=== PATIENT | male | born 1950 | race Native Hawaiian/Other Pacific Islander ===

== ENCOUNTER 2017-05-12 09:16 | Outpatient (CLI) | payer BC, OTHER ==
[2017-05-12 10:08] LABS: *BILIRUBIN,URIN NEGATIVE (NEGATIVE); *BLOOD, URINE 1+ (NEGATIVE); *CLARITY,URINE CLEAR (CLEAR); *COLOR,URINE YELLOW (YELLOW); *KETONES,URINE NEGATIVE (NEGATIVE); *PROTEIN,URINE NEGATIVE (NEGATIVE); *UROBILINOGEN,URINE 0.2 E.U./dl (NORMAL); LEUKOCYTE ESTERASE ,URINE NEGATIVE (NEGATIVE); NITRITE, URINE NEGATIVE (NEGATIVE); UGLUCOSE NEGATIVE (NEGATIVE)
[2017-05-12 10:19] LABS: BACTERIA,URINE FEW /HPF (NONE SEEN); SQUAMOUS EPITHELIAL CELL,UR FEW /HPF (NONE SEEN); WBC,URINE 0-3 /HPF (0-3)
[2017-05-12 10:30] LABS: BILIRUBIN,TOTAL 0.6 mg/dL (0.2-1.0); CREATININE 1.1 mg/dL (0.6-1.3); POTASSIUM 3.9 mmol/L (3.5-5.1); TOTAL PROTEIN, SERUM 7.5 g/dL (6.4-8.2)
[2017-05-12 10:34] LABS: BASOPHILS # (AUTO) 0.1 K/uL (0.0-8.0); BASOPHILS % (AUTO) 0.8 % (0.0-2.0); EOSINOPHILS # (AUTO) 0.1 K/uL (0.0-0.7); EOSINOPHILS % (AUTO) 2.1 % (0.0-7.0); LYMPHOCYTES # (AUTO) 2.3 K/UL (0.8-4.8); LYMPHOCYTES % (AUTO) 33.5 % (20.5-51.5); MEAN CORPUSCULAR HEMOGLOBIN 30.1 UUG (27.0-31.0); MEAN CORPUSCULAR HGB CONC 33 g/dL (32.0-37.0); MEAN CORPUSCULAR VOLUME 90.6 FL (82.0-92.0); MONOCYTES # (AUTO) 0.4 K/UL (0.1-1.30); NEUTROPHILS # (AUTO) 3.9 K/UL (1.8-8.9); NEUTROPHILS % (AUTO) 57.6 % (38.5-71.5); PLATELET COUNT (AUTO) 208 K/UL (150-450); RED BLOOD CELL COUNT(AUTO) 4.97 MIL/UL (4.7-6.1); WHITE BLOOD COUNT (AUTO) 6.8 K/UL (4.0-11.2)
[2017-05-12 10:55] LABS: THYROID STIMULATING HORMONE 1.773 mIU/mL (0.358-3.740)
== END 2017-05-12 23:59 | disposition home or self-care (01) ==
LOC: LAB 09:16
PROVIDERS: ATTEND Internal Medicine
DX: I71.4 Abdominal aortic aneurysm, without rupture (principal); K76.89 Other specified diseases of liver; N28.1 Cyst of kidney, acquired; M50.322 Other cervical disc degeneration at C5-C6 level; M48.02 Spinal stenosis, cervical region; R73.9 Hyperglycemia, unspecified; Z98.890 Other specified postprocedural states
CPT/HCPCS: 36415; 72050; 84153; 84443; 85025; 87086; J7050; Q9967

== ENCOUNTER 2017-05-26 08:32 | Outpatient (CLI) | payer BC, OTHER ==
[2017-05-26 10:02] LABS: BASOPHILS # (AUTO) 0.1 K/uL (0.0-8.0); BASOPHILS % (AUTO) 0.7 % (0.0-2.0); EOSINOPHILS # (AUTO) 0.1 K/uL (0.0-0.7); HEMOGLOBIN 14.6 G/DL (14.0-18.0); LYMPHOCYTES % (AUTO) 23.3 % (20.5-51.5); MEAN CORPUSCULAR HEMOGLOBIN 29.7 UUG (27.0-31.0); MEAN CORPUSCULAR HGB CONC 33 g/dL (32.0-37.0); MEAN CORPUSCULAR VOLUME 89.6 FL (82.0-92.0); MONOCYTES # (AUTO) 0.4 K/UL (0.1-1.30); MONOCYTES % (AUTO) 4.9 % (0.0-11.0); NEUTROPHILS % (AUTO) 70.1 % (38.5-71.5); PLATELET COUNT (AUTO) 210 K/UL (150-450); RED BLOOD CELL COUNT(AUTO) 4.92 MIL/UL (4.7-6.1); WHITE BLOOD COUNT (AUTO) 8.6 K/UL (4.0-11.2)
[2017-05-26 10:04] LABS: THYROID STIMULATING HORMONE 2.76 mIU/mL (0.358-3.740)
[2017-05-26 11:31] LABS: BILIRUBIN,TOTAL 0.6 mg/dL (0.2-1.0); CREATININE 1.1 mg/dL (0.6-1.3); POTASSIUM 3.8 mmol/L (3.5-5.1); TOTAL PROTEIN, SERUM 7.5 g/dL (6.4-8.2)
== END 2017-05-26 23:59 | disposition home or self-care (01) ==
LOC: LAB 08:32
PROVIDERS: ATTEND Family Medicine
DX: I08.0 Rheumatic disorders of both mitral and aortic valves (principal); I77.811 Abdominal aortic ectasia; I71.4 Abdominal aortic aneurysm, without rupture; I10 Essential (primary) hypertension
CPT/HCPCS: 36415; 84443; 85025; 93307

== ENCOUNTER 2017-06-06 11:25 | Outpatient (CLI) | payer BC, OTHER | END 2017-06-06 23:59 | disposition home or self-care (01) | LOC: CT 11:25 | PROVIDERS: ATTEND Family Medicine | DX: R91.1 Solitary pulmonary nodule (principal); I71.2 Thoracic aortic aneurysm, without rupture; I71.4 Abdominal aortic aneurysm, without rupture; I25.10 Atherosclerotic heart disease of native coronary artery without angina pectoris; I70.0 Atherosclerosis of aorta; K76.89 Other specified diseases of liver; F17.210 Nicotine dependence, cigarettes, uncomplicated; Q85.8 Other phakomatoses, not elsewhere classified | CPT/HCPCS: 71250 ==

== ENCOUNTER 2017-09-26 12:06 | Outpatient (CLI) | payer BC, OTHER ==
[2017-09-26 12:39] LABS: BASOPHILS # (AUTO) 0.1 K/uL (0.0-8.0); BASOPHILS % (AUTO) 1.1 % (0.0-2.0); EOSINOPHILS # (AUTO) 0.1 K/uL (0.0-0.7); EOSINOPHILS % (AUTO) 1.7 % (0.0-7.0); HEMATOCRIT 36.9 % (36.7-47.1); LYMPHOCYTES % (AUTO) 29.4 % (20.5-51.5); MEAN CORPUSCULAR HGB CONC 33 g/dL (32.5-36.3); MONOCYTES # (AUTO) 0.4 K/uL (2.0-10.0); MONOCYTES % (AUTO) 6.5 % (0.0-11.0); NEUTROPHILS # (AUTO) 4.1 K/uL (1.8-8.9); NEUTROPHILS % (AUTO) 61.3 % (38.5-71.5); PLATELET COUNT (AUTO) 221 K/uL (152-348); RED BLOOD CELL COUNT(AUTO) 4.29 MIL/uL (4.06-5.63); WHITE BLOOD COUNT (AUTO) 6.7 K/uL (3.6-10.2)
[2017-09-26 13:00] LABS: BILIRUBIN,TOTAL 0.3 mg/dL (0.2-1.0); CREATININE 1.1 mg/dL (0.6-1.3); POTASSIUM 3.5 mmol/L (3.5-5.1); TOTAL PROTEIN, SERUM 7.5 g/dL (6.4-8.2)
[2017-09-26 13:11] LABS: THYROID STIMULATING HORMONE 2.357 mIU/mL (0.358-3.740)
== END 2017-09-26 23:59 | disposition home or self-care (01) ==
LOC: LAB 12:06
PROVIDERS: ATTEND Family Medicine
DX: R53.83 Other fatigue (principal)
CPT/HCPCS: 36415; 84443; 85025

== ENCOUNTER 2017-10-20 09:24 | Outpatient (CLI) | payer BC, OTHER | END 2017-10-20 23:59 | disposition home or self-care (01) | LOC: LAB 09:24 | PROVIDERS: ATTEND Family Medicine | DX: E78.2 Mixed hyperlipidemia (principal); E55.9 Vitamin D deficiency, unspecified | CPT/HCPCS: 36415; 82306 ==

== ENCOUNTER 2023-02-23 08:50 | Inpatient (IN) | payer BC, OTHER ==
[~2023-02-23] VITALS: Ht 167.6 cm; Wt 51.3 kg
[2023-02-23] MEDS ORDERED: MORPHINE SULFATE 2 MG/1 ML DISP.SYRIN IV ONE (09:00)
[2023-02-23] MEDS ORDERED: ATOR40TA PO (09:03)
[2023-02-23] MEDS ORDERED: ASPI81TA31 PO (09:03)
[2023-02-23] MEDS ORDERED: METOPROLOL (09:03)
[2023-02-23] MEDS ORDERED: FOLIC ACID PO (09:04)
[2023-02-23] MEDS ORDERED: OMEP20TA5 PO (09:04)
--- NOTE | 2023-02-23 09:10 | NUR ---
Patient and were unable to recall all the exact names and dosages of home medications at this time. Family was instructed to bring the lists or bottles of home medicines to the hospital.
[2023-02-23] MEDS ORDERED: IV NORMAL SALINE 1000 ML BAG IV ONE (09:15)
[2023-02-23] MEDS ORDERED: MORPHINE SULFATE 4 MG/1 ML DISP.SYRIN ONE ×2 (09:16→10:55)
[2023-02-23] MEDS ORDERED: ONDANSETRON 4 MG/2 ML VIAL ONE (09:21)
--- NOTE | 2023-02-23 09:25 | NUR ---
BIB family from home with c/o severe abd pain. Assisted into gown, placed on monitor and informed of plan of care. ER provider was at bedside for exam, bedside EKG done for MD review, #20g established in left ac, blood collected and sent to lab. Assisted into position of comfort, side rails up, IVF infusing as per order and has been medicated as per order. Family remains at bedside, will continue to monitor.
[2023-02-23] MEDS ORDERED: ONDANSETRON 4 MG/2 ML VIAL IV ONE (09:30)
[2023-02-23 09:36] LABS: MEAN CORPUSCULAR HEMOGLOBIN 29.2 uug (23.8-33.4); MEAN CORPUSCULAR VOLUME 88.5 fL (73.0-96.2); PLATELET COUNT (AUTO) 255 K/uL (152-348)
[2023-02-23 09:45] LABS: CARBON DIOXIDE 24 mmol/L (21-32); CHLORIDE 105 mmol/L (98-107); CREATININE 1.3 mg/dL (0.6-1.3); POTASSIUM 3.5 mmol/L (3.5-5.1); UREA NITROGEN, BLOOD 19 mg/dL (7-18)
--- NOTE | 2023-02-23 09:47 | NUR ---
Requested and given a urinal.
--- NOTE | 2023-02-23 09:50 | NUR ---
Family member states that pain is a little better.
[2023-02-23 09:51] LABS: ALANINE AMINOTRANSFERASE 20 U/L (16-63); ALKALINE PHOSPHATASE 86 U/L (50-136); ASPARTATE AMINOTRANSFERASE 14 U/L (15-37); BILIRUBIN,DIRECT 0.2 mg/dL (0.0-0.2); BILIRUBIN,TOTAL 0.5 mg/dL (0.2-1.0); LIPASE 215 U/L (73-393); TOTAL PROTEIN, SERUM 7.6 g/dL (6.4-8.2)
[2023-02-23] MEDS ORDERED: IOHEXOL 350 100 ML INFUS..BTL ONE (09:58)
[2023-02-23] MEDS ORDERED: SWABABLE VALVE TRANSFER SET EA MC ONE (09:58)
[2023-02-23] MEDS ORDERED: IV NORMAL SALINE 250 ML IV ONE (09:59)
--- NOTE | 2023-02-23 10:09 | NUR ---
Off unit via gurney to CT.
[2023-02-23] MEDS ORDERED: METO-356 PO (10:40)
--- NOTE | 2023-02-23 10:46 | NUR ---
Patient ambulated to bathroom with family.
--- NOTE | 2023-02-23 10:57 | NUR ---
Medicated at this time for pain 10/10 to abd area.
[2023-02-23] MEDS ORDERED: MORPHINE SULFATE 4 MG/1 ML DISP.SYRIN IV ONE (11:00)
[2023-02-23] MEDS ORDERED: HYDROMORPHONE 1 MG/1 ML DISP.SYRIN IV ONE (12:45)
--- NOTE | 2023-02-23 12:57 | NUR ---
PATIENT AND FAMILY AWARE THAT PATIENT WILL BE ADMITTED TO THE HOSPITAL, AWAITING ROOM ASSIGNMENT.
--- NOTE | 2023-02-23 12:58 | NUR ---
er PROVIDER AWARE OF ELEVATED B/P.
[2023-02-23] MEDS ORDERED: hydrALAZINE HCL 20 MG/1 ML VIAL ONE (13:00)
[2023-02-23] MEDS ORDERED: hydrALAZINE HCL 20 MG/1 ML VIAL IV ONE (13:00)
[2023-02-23] MEDS ORDERED: HYDROMORPHONE 1 MG/1 ML DISP.SYRIN ONE (13:01)
--- NOTE | 2023-02-23 13:08 | NUR ---
fAMILY INFORMED OF ROOM #330 .
--- NOTE | 2023-02-23 13:14 | NUR ---
Medicated for B/P and pain at this time. Urine collected and sent to lab.
--- NOTE | 2023-02-23 13:23 | NUR ---
18fr abel inserted as per order.
[2023-02-23 13:33] LABS: *BILIRUBIN,URIN NEGATIVE (NEGATIVE); *BLOOD, URINE 2+ (NEGATIVE); *CLARITY,URINE CLEAR (CLEAR); *COLOR,URINE YELLOW (YELLOW); *KETONES,URINE TRACE (NEGATIVE); *UROBILINOGEN,URINE 0.2 E.U./dl (NORMAL); LEUKOCYTE ESTERASE ,URINE NEGATIVE (NEGATIVE); NITRITE, URINE NEGATIVE (NEGATIVE); PH,URINE 7.5 (5.0-8.0); UGLUCOSE TRACE (NEGATIVE)
[2023-02-23 13:53] LABS: WBC,URINE 0-3 /HPF (0-3)
[2023-02-23] MEDS ORDERED: REMEDY ESSENTIAL ZINC PASTE 113 GM TP PRN (14:15)
[2023-02-23] MEDS ORDERED: ACETAMINOPHEN 325 MG TABLET PO PRN (14:15)
[2023-02-23] MEDS ORDERED: MAGNESIUM HYDROXIDE 30 ML LIQUID UDC PO PRN (14:15)
[2023-02-23] MEDS ORDERED: ASPIRIN 81 MG TAB.CHEW PO SCH (14:15)
[2023-02-23] MEDS ORDERED: ONDANSETRON 4 MG/2 ML VIAL IV PRN (14:15)
--- NOTE | 2023-02-23 14:18 | NUR ---
Report given to accepting nurse Gener, patient remains stable for transport.
[2023-02-23 16:00] VITALS: BP 138/76; TEMP 97.8; O2SAT 99
[2023-02-23] MEDS ORDERED: TAMSULOSIN HCL 0.4 MG CAP.SR.24H PO SCH (16:00)
--- NOTE | 2023-02-23 16:00 | NUR ---
[facility] 3[facility]. AAOx4. Afebrile. No SOB or any respiratory distress. Pt in pain 5/10 in abdominal area but refused any pain medication. Pt. ambulatory. He just want to rest and sleep. Vital signs WNL. Needs attended. Admission protocol provided. Call light put within reach.
[2023-02-23] MEDS: FOLIC ACID 1 MG TABLET PO SCH (17:45)
[2023-02-23] MEDS: PANTOPRAZOLE SODIUM 40 MG TABLET.DR PO SCH (17:45)
[2023-02-23] MEDS: ATORVASTATIN 40 MG TABLET PO SCH (17:46)
[2023-02-23] MEDS: METOPROLOL SUCCINATE XL 25 MG TAB.SR.24H PO SCH (17:46)
--- NOTE | 2023-02-23 18:36 | NUR ---
Pt's routine PO meds given and pt. tolerated it. Pt. in cardiac diet (low fat/cholesterol) and he prefers to have his dinner from home to be brought by the family. Pt no pain but still with abdominal discomfort. Dias cath draining via gravity with output of 950 cc. No vomiting episode at this time. Family on bedside.
[2023-02-23 20:00] VITALS: BP 116/67; TEMP 98.4; O2SAT 97
--- NOTE | 2023-02-23 20:00 | NUR ---
RECEIVED REPORT FROM AM NURSE GENER PT IS ALERT AND ORIENTED X4 IS AT BEDSIDE NO SIGNS OF DISTRESS NOTED. PT TAKEN DOWN FOR XRAY AND NAVAS EMPTIED HAD 1000 OUT. NO SIGNS OF DISTRESS NOTED. PT RETURNED FROM XRAY AT 0 NO SIGNS OF EMESIS NOTED OR COMPLIANTS OF NAUSEA. WILL CONTINUE TO MONITOR FOR THESE SYMPTOMS. AND FOR FALLS ALONG WITH SAFETY.
[2023-02-24 06:13] VITALS: BP 109/68; TEMP 98.2; O2SAT 99
[2023-02-24] MEDS: PANTOPRAZOLE SODIUM 40 MG TABLET.DR PO SCH (06:22)
[2023-02-24 06:35] LABS: HEMATOCRIT 39.2 % (36.7-47.1); MEAN CORPUSCULAR HEMOGLOBIN 29.2 uug (23.8-33.4); PLATELET COUNT (AUTO) 236 K/uL (152-348)
--- NOTE | 2023-02-24 06:54 | NUR ---
PT SLEPT DURING THE NIGHT NO SIGNS OF EMESIS NOTED. WILL ENDORSE TO AM NURSE.
[2023-02-24 07:04] LABS: CREATININE 1.2 mg/dL (0.6-1.3); MAGNESIUM 2.1 mg/dL (1.8-2.4); POTASSIUM 3.5 mmol/L (3.5-5.1)
[2023-02-24] MEDS: METOPROLOL SUCCINATE XL 25 MG TAB.SR.24H PO SCH (08:41)
[2023-02-24] MEDS: ATORVASTATIN 40 MG TABLET PO SCH (08:41)
[2023-02-24] MEDS: FOLIC ACID 1 MG TABLET PO SCH (08:41)
[2023-02-24] MEDS ORDERED: IV NS 1000 ML 1,000 ML IV PRN (09:30)
[2023-02-24] MEDS ORDERED: TAMS-3 PO (11:13)
[2023-02-24 12:00] VITALS: BP 100/60; TEMP 98.3; O2SAT 100
--- NOTE | 2023-02-24 12:51 | NUR ---
Discharge instructions given. Pt urinated well 400 after f/c was d/c @ 800am. Instructed to f/u with primary doctor within 1 week. Pt is in no acute distress. PT tolerated am breakfast. No c/o nausea and vomiting. IV taken out. No c/o abd pain.
[2023-02-24] MEDS ORDERED: TAMSULOSIN HCL 0.4 MG CAP.SR.24H PO SCH (21:00)
[2023-02-25] MEDS ORDERED: ONDA4TAB5 PO (13:43)
[2023-02-25] MEDS ORDERED: FAMO-132 PO (13:43)
== END 2023-02-24 13:00 | disposition home or self-care (01) | DRG 726 ==
LOC: ER 08:50 → TELE3 14:51 → MEDSURG3 16:41
PROVIDERS: ADMIT Nurse Practitioner Acute Care; ATTEND Nurse Practitioner Acute Care
DX: N40.1 Benign prostatic hyperplasia with lower urinary tract symptoms (principal); N13.8 Other obstructive and reflux uropathy; R33.8 Other retention of urine; F12.90 Cannabis use, unspecified, uncomplicated; F17.210 Nicotine dependence, cigarettes, uncomplicated; I73.9 Peripheral vascular disease, unspecified; K21.9 Gastro-esophageal reflux disease without esophagitis; Z87.440 Personal history of urinary (tract) infections; R91.1 Solitary pulmonary nodule; I10 Essential (primary) hypertension; Z98.62 Peripheral vascular angioplasty status; Z86.79 Personal history of other diseases of the circulatory system; I71.40 Abdominal aortic aneurysm, without rupture, unspecified
CPT/HCPCS: 36415; 71045; 71250; 83605; 83690; 83735; 84100; 84153; 85025; 85730; 86301; 93005; A4663; C1758; G0378; J0360; J1170; J2270; J2405; J7040; Q9967

== ENCOUNTER 2023-02-25 10:59 | Inpatient (IN) | payer BC, MEDICARE, OTHER ==
[~2023-02-25] VITALS: Ht 167.6 cm; Wt 51.3 kg
[~2023-02-25 10:59] MED LIST: ASPI81TA31 PO; ATOR40TA PO; FOLIC ACID PO; METO-356 PO; OMEP20TA5 PO; TAMS-3 PO
[2023-02-25] MEDS ORDERED: MORPHINE SULFATE 2 MG/1 ML DISP.SYRIN IV ONE (11:30)
[2023-02-25] MEDS ORDERED: ONDANSETRON HCL 4 MG TABLET PO ONE (11:30)
[2023-02-25 11:42] LABS: HEMATOCRIT 46.6 % (36.7-47.1); MEAN CORPUSCULAR HEMOGLOBIN 29.3 uug (23.8-33.4); MEAN CORPUSCULAR VOLUME 87.7 fL (73.0-96.2); PLATELET COUNT (AUTO) 258 K/uL (152-348)
--- NOTE | 2023-02-25 11:42 | NUR ---
BIB , placed into room #4, placed on monitor, informed of plan of care. C/O abd pain with nausea and vomiting. Patient remains alert and oriented x4, no s/s of respiratory distress, abd is soft and non tender to palpation with positive bowel sounds. #20g was established in left ac, blood collected and sent to lab. will continue to monitor.
[2023-02-25 11:47] LABS: CARBON DIOXIDE 24 mmol/L (21-32); CHLORIDE 102 mmol/L (98-107); CREATININE 1.3 mg/dL (0.6-1.3); POTASSIUM 3.3 mmol/L (3.5-5.1); UREA NITROGEN, BLOOD 17 mg/dL (7-18)
[2023-02-25] MEDS ORDERED: ONDANSETRON 4 MG/2 ML VIAL ONE (11:47)
[2023-02-25] MEDS ORDERED: MORPHINE SULFATE 4 MG/1 ML DISP.SYRIN ONE (11:47)
--- NOTE | 2023-02-25 11:53 | NUR ---
Patient ambulated to bathroom and back to bed, radiology at bedside, has been medicated as per order. Per ER provider Okay to medicated with IV zofran.
[2023-02-25 11:56] LABS: ALANINE AMINOTRANSFERASE 19 U/L (16-63); ALKALINE PHOSPHATASE 106 U/L (50-136); ASPARTATE AMINOTRANSFERASE 13 U/L (15-37); BILIRUBIN,DIRECT 0.2 mg/dL (0.0-0.2); BILIRUBIN,TOTAL 0.9 mg/dL (0.2-1.0); TOTAL PROTEIN, SERUM 8.7 g/dL (6.4-8.2)
--- NOTE | 2023-02-25 12:02 | NUR ---
Patient resting at this time, remains easy to arouse, remains at bedside, will continue to monitor.
--- NOTE | 2023-02-25 12:56 | NUR ---
ER provider at bedside talking to patient.
--- NOTE | 2023-02-25 12:57 | NUR ---
IV fluids infusing as per order.
[2023-02-25] MEDS ORDERED: IV NORMAL SALINE 1000 ML BAG IV ONE (13:00)
[2023-02-25] MEDS ORDERED: FAMOTIDINE. 20 MG/2 ML VIAL IV ONE ×2 (13:15→13:16)
[2023-02-25] MEDS ORDERED: MAG HYDROX/AL HYDROX/SIMETH 30 ML LIQUID UDC PO ONE (13:15)
[2023-02-25] MEDS ORDERED: LIDOCAINE VISCUS 2% 15 ML UDC MM ONE (13:15)
[2023-02-25] MEDS ORDERED: MAG HYDROX/AL HYDROX/SIMETH 30 ML LIQUID UDC ONE (13:15)
--- NOTE | 2023-02-25 13:22 | NUR ---
remains at bedside, medicated as per order, IVF continues to infuse.
[2023-02-25] MEDS ORDERED: FAMO-132 PO (13:43)
[2023-02-25] MEDS ORDERED: ONDA4TAB5 PO (13:43)
[2023-02-25 13:47] LABS: *BILIRUBIN,URIN NEGATIVE (NEGATIVE); *BLOOD, URINE 1+ (NEGATIVE); *CLARITY,URINE CLEAR (CLEAR); *COLOR,URINE YELLOW (YELLOW); *KETONES,URINE 1+ (NEGATIVE); *UROBILINOGEN,URINE 0.2 E.U./dl (NORMAL); LEUKOCYTE ESTERASE ,URINE NEGATIVE (NEGATIVE); NITRITE, URINE NEGATIVE (NEGATIVE); UGLUCOSE NEGATIVE (NEGATIVE)
--- NOTE | 2023-02-25 13:53 | NUR ---
Informed ER provider of 2nd trop level of 94 at this time. Provider at bedside talking with patient.
[2023-02-25 13:59] LABS: BACTERIA,URINE FEW /HPF (NONE SEEN); SQUAMOUS EPITHELIAL CELL,UR FEW /HPF (NONE SEEN); URINE AMORPHOUS URATE MODERATE /HPF; WBC,URINE 0-3 /HPF (0-3)
[2023-02-25] MEDS ORDERED: ASPIRIN 81 MG TAB.CHEW PO ONE (14:30)
[2023-02-25] MEDS ORDERED: ASPIRIN 325 MG TABLET PO ONE (15:30)
--- NOTE | 2023-02-25 16:37 | NUR ---
REPORT GIVEN TO ALISE, PATIENT REMAINS STABLE FOR TRANSPORT.
[2023-02-25] MEDS ORDERED: ASPIRIN 325 MG TABLET ONE (16:39)
--- NOTE | 2023-02-25 17:00 | NUR ---
received from ER per stretcher awake alert and oriented, on room aair, denies of chest pain, no abdominal pain. Routine admission care rendered, initial assessment done. Telemetry applied- ST/SR with PVC's, safety measures initiated , at bedside
[2023-02-25 17:16] VITALS: BP 109/68; TEMP 98.7; O2SAT 98
[2023-02-25] MEDS ORDERED: ACETAMINOPHEN 325 MG TABLET PO PRN (18:15)
[2023-02-25] MEDS ORDERED: ONDANSETRON 4 MG/2 ML VIAL IV PRN (18:15)
[2023-02-25] MEDS ORDERED: HYDROCODONE/APAP 5-325MG TABLET PO PRN (18:15)
[2023-02-25 20:00] VITALS: BP 107/62; TEMP 98.2; O2SAT 96
--- NOTE | 2023-02-25 20:40 | NUR ---
Received patient alert oriented, no sob no chest pain, at bedside, no further episode of nausea or vomiting, patient sleep intermittenly. cont to monitor.
[2023-02-25] MEDS ORDERED: TAMSULOSIN HCL 0.4 MG CAP.SR.24H PO SCH (21:00)
[2023-02-25] MEDS ORDERED: ATORVASTATIN 40 MG TABLET PO SCH (21:00)
[2023-02-25] MEDS ORDERED: ENOXAPARIN SODIUM 40 MG/0.4 ML DISP.SYRIN SQ SCH (21:00)
[2023-02-25] MEDS: METOPROLOL SUCCINATE XL 25 MG TAB.SR.24H PO SCH (21:03)
[2023-02-26 01:54] VITALS: BP 118/66; TEMP 98.3; O2SAT 96
[2023-02-26 04:00] VITALS: BP 104/55; TEMP 98.3; O2SAT 96
[2023-02-26] MEDS ORDERED: PANTOPRAZOLE SODIUM 40 MG TABLET.DR PO SCH (07:00)
--- NOTE | 2023-02-26 07:01 | NUR ---
Patient alert oriented, no sob no chest pain, tele monitor sinus rhythm, with PVC, no complain of pain, no further episode of nausea or vomiting noted, in this shift, cont to monitor.
[2023-02-26 07:14] LABS: HEMATOCRIT 38.1 % (36.7-47.1); MEAN CORPUSCULAR HEMOGLOBIN 29.5 uug (23.8-33.4); MEAN CORPUSCULAR VOLUME 88.7 fL (73.0-96.2); PLATELET COUNT (AUTO) 207 K/uL (152-348)
[2023-02-26 07:30] LABS: ALANINE AMINOTRANSFERASE 12 U/L (16-63); ALKALINE PHOSPHATASE 82 U/L (50-136); ASPARTATE AMINOTRANSFERASE 12 U/L (15-37); BILIRUBIN,TOTAL 0.5 mg/dL (0.2-1.0); CARBON DIOXIDE 23 mmol/L (21-32); CHLORIDE 108 mmol/L (98-107); CREATININE 1.3 mg/dL (0.6-1.3); POTASSIUM 3.8 mmol/L (3.5-5.1); TOTAL PROTEIN, SERUM 6.8 g/dL (6.4-8.2); UREA NITROGEN, BLOOD 19 mg/dL (7-18)
[2023-02-26 08:27] LABS: MAGNESIUM 2.2 mg/dL (1.8-2.4)
[2023-02-26] MEDS ORDERED: FOLIC ACID 1 MG TABLET PO SCH (09:00)
[2023-02-26] MEDS ORDERED: ASPIRIN 81 MG TAB.CHEW PO SCH (09:00)
[2023-02-26] MEDS ORDERED: OMEPRAZOLE 20 MG PO SCH (09:00)
[2023-02-26] MEDS: METOPROLOL SUCCINATE XL 25 MG TAB.SR.24H PO SCH (10:54)
[2023-02-26 11:45] VITALS: BP 107/62; TEMP 98.4; O2SAT 98
--- NOTE | 2023-02-26 12:44 | NUR ---
Patient was discharged to home at 1244, left with in private vehicle. His VSS, alert and oriented x4, nausea and vomiting has resolved, elevated troponin is now WNL. Patient has no further complaints.
== END 2023-02-26 12:45 | disposition home or self-care (01) | DRG 391 ==
LOC: ER 10:59 → TELE3 16:39 → MEDSURG3 02-26 11:20
PROVIDERS: ADMIT Internal Medicine; ATTEND Internal Medicine
DX: K29.00 Acute gastritis without bleeding (principal); I21.A1 Myocardial infarction type 2; N17.0 Acute kidney failure with tubular necrosis; E87.6 Hypokalemia; E78.5 Hyperlipidemia, unspecified; F17.210 Nicotine dependence, cigarettes, uncomplicated; N40.0 Benign prostatic hyperplasia without lower urinary tract symptoms; Z86.79 Personal history of other diseases of the circulatory system; Z87.442 Personal history of urinary calculi; R73.03 Prediabetes; N20.0 Calculus of kidney; Z87.440 Personal history of urinary (tract) infections; I73.9 Peripheral vascular disease, unspecified; K21.9 Gastro-esophageal reflux disease without esophagitis; I12.9 Hypertensive chronic kidney disease with stage 1 through stage 4 chronic kidney disease, or unspecified chronic kidney disease; N18.9 Chronic kidney disease, unspecified; R91.1 Solitary pulmonary nodule; Z98.62 Peripheral vascular angioplasty status; J44.9 Chronic obstructive pulmonary disease, unspecified; Z79.82 Long term (current) use of aspirin
CPT/HCPCS: 36415; 71045; 83690; 83735; 84443; 84484; 85025; 85730; 86850; 86900; 86901; 93005; G0378; J1650; J2270; J2405; J3490; J7040

== ENCOUNTER 2023-04-11 08:34 | Day surgery (SDC) | payer BC, OTHER ==
[~2023-04-11 08:34] MED LIST changes: -ATOR40TA PO
[2023-04-11] MEDS ORDERED: LIDOCAINE-MPF 2% 5 ML VIAL ONE (12:00)
[2023-04-11] MEDS ORDERED: SIMETHICONE 40 MG/0.6 ML, 30ML BOTTLE ONE (12:00)
[2023-04-11] MEDS ORDERED: PROPOFOL 200 MG/20 ML BOTTLE ONE (12:00)
[2023-04-11 13:45] VITALS: TEMP 97.6
== END 2023-04-11 13:50 | disposition home or self-care (01) ==
LOC: DS 08:34
PROVIDERS: ATTEND Surgery
DX: R63.4 Abnormal weight loss (principal); R10.13 Epigastric pain; K44.9 Diaphragmatic hernia without obstruction or gangrene; K29.50 Unspecified chronic gastritis without bleeding; K29.80 Duodenitis without bleeding; K63.89 Other specified diseases of intestine; I10 Essential (primary) hypertension; I25.10 Atherosclerotic heart disease of native coronary artery without angina pectoris; E78.5 Hyperlipidemia, unspecified; N40.0 Benign prostatic hyperplasia without lower urinary tract symptoms; K21.00 Gastro-esophageal reflux disease with esophagitis, without bleeding; F32.9 Major depressive disorder, single episode, unspecified; R11.2 Nausea with vomiting, unspecified; F17.210 Nicotine dependence, cigarettes, uncomplicated; Z79.82 Long term (current) use of aspirin; Z79.899 Other long term (current) drug therapy; Z98.890 Other specified postprocedural states; Z82.49 Family history of ischemic heart disease and other diseases of the circulatory system
CPT/HCPCS: 43239; 45380; 88305; 88313; 88342; J3490; J7120; A4663